=== PATIENT | male | born 1990 | race Hispanic/Latino ===

== ENCOUNTER 2017-04-10 07:49 | Emergency (ER) | payer OTHER, BC ==
[2017-04-10 08:02] VITALS: BMI 27.6
[2017-04-10 08:12] VITALS: RESP 18; TEMP 98.1; O2SAT 96
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
--- NOTE | 2017-04-10 10:21 | RAD ---
PROCEDURE: Radiographs of the Chest and Right Ribs. HISTORY: r/o fx PTX COMPARISON: None available. TECHNIQUE: Frontal radiograph of the chest and multiple oblique radiographs of the right ribs were obtained. FINDINGS: RIGHT RIBS: No fracture or focal lesion visualized. LUNGS: Clear. PLEURA: No pneumothorax or pleural fluid. CARDIOVASCULAR: Normal sized heart. No pulmonary vascular congestion. OTHER FINDINGS: None. IMPRESSION: Unremarkable radiographs of the chest and right ribs. No right rib fracture.
[2017-04-10 10:40] VITALS: BP 114/76; PULSE 76
== END 2017-04-10 10:40 | disposition home or self-care (01) ==
LOC: ED 07:49
DX: S20.211A Contusion of right front wall of thorax, initial encounter (principal); V49.49XA Driver injured in collision with other motor vehicles in traffic accident, initial encounter; Y92.410 Unspecified street and highway as the place of occurrence of the external cause